=== PATIENT | male | born 1980 | race Caucasian/White ===

== ENCOUNTER 2016-12-04 17:24 | Emergency (ER) | payer OTHER ==
[2016-12-04 18:06] VITALS: TEMP 96.8; O2SAT 100
[2016-12-04 18:14] LABS: BASOPHILS % (AUTO) 1 % (0-3); EOSINOPHILS % (AUTO) 2 % (0-9); HEMATOCRIT 43 % (39-53); MEAN CORPUSCULAR HGB CONC 35.4 gm/dl (32.0-36.0); MEAN CORPUSCULAR VOLUME 85 fL (80-100); MONOCYTES % (AUTO) 5.1 % (0-12); NEUTROPHILS % (AUTO) 59.1 % (37-80)
[2016-12-04 18:32] LABS: ALBUMIN 4.1 gm/dl (3.4-5.0); CALCIUM 8.9 mg/dl (8.5-10.1); POTASSIUM 3.6 mMol/L (3.5-5.1)
[2016-12-04 19:33] VITALS: BP 126/69; PULSE 66; RESP 12
== END 2016-12-04 19:38 | disposition home or self-care (01) ==
LOC: ED 17:24
DX: R55 Syncope and collapse (principal)
CPT/HCPCS: 36415; 80053; 85025; 93005; 99284

== ENCOUNTER 2018-03-15 18:25 | Emergency (ER) | payer BC, OTHER ==
[2018-03-15] MEDS ORDERED: AZITHROMYCIN 250 MG TAB PO ONE (19:18)
[2018-03-15] MEDS ORDERED: AZITHROMYCIN 250 MG TAB ONE (19:51)
[2018-03-15 20:08] VITALS: PULSE 80; TEMP 96.4
[2018-03-15 20:18] VITALS: BP 150/86; RESP 18; O2SAT 97
== END 2018-03-15 20:03 | disposition home or self-care (01) ==
LOC: ED 18:25
DX: J02.0 Streptococcal pharyngitis (principal); B95.5 Unspecified streptococcus as the cause of diseases classified elsewhere
CPT/HCPCS: 87430; 99282; A9270-GY